=== PATIENT | female | born 1960 | race Asian ===

== ENCOUNTER → 2017-10-22 | Outpatient (CLI) | payer OTHER | LOC: BRMIMAGING 15:09 | PROVIDERS: ATTEND Family Medicine | DX: Z12.31 Encounter for screening mammogram for malignant neoplasm of breast (principal) | CPT/HCPCS: G0202 ==

== ENCOUNTER → 2018-10-25 | Outpatient (CLI) | payer OTHER | LOC: BRMIMAGING 15:13 | PROVIDERS: ATTEND Family Medicine | DX: Z12.31 Encounter for screening mammogram for malignant neoplasm of breast (principal) ==